=== PATIENT | male | born 1985 | race Caucasian/White ===

== ENCOUNTER 2017-09-21 15:34 | Emergency (ER) | payer SELFPAY ==
[~2017-09-21] VITALS: Ht 182.9 cm; Wt 85.0 kg
[2017-09-21 15:48] VITALS: BP 120/67; PULSE 102; RESP 19; TEMP 98.2; O2SAT 95
--- NOTE | 2017-09-21 16:03 | PD ---
HPI Chief Complaint: Alcohol/Drug Intoxication Time Seen by Provider: 15:49 Travel History International Travel<30 days: No Contact w/Intl Traveler<30days: No Traveled to known affect area: No History of Present Illness HPI The patient is a 32-year-old male who presents to the emergency department via EMS for drug intoxication. The patient apparently was found vomiting, bilaterally, at a convenience store earlier today and EMS was called. The patient states he smoked K2 and approximately 2:30 PM. The patient does have a history of prior case to use, states he had one previous episode of similar symptoms with nausea and vomiting. The patient states his nausea is currently resolved. He denies any headache, chest pain, shortness breath, abdominal pain, but does complain of some generalized fatigue. He denies ingestion of alcohol or any other illicit drugs except for K2. The drums are moderate, exacerbated after drug use, and mostly self alleviating. PFSH Past Medical History Narrative Medical Illicit drug use Past Surgical History Narrative Surgical Noncontributory Social History Alcohol Use: No Tobacco Use: Yes Substance Use: Yes Allergies-Medications (Allergen,Severity, Reaction): Coded Allergies: No Known Allergies (Unverified , 09/21/17) Review of Systems Except as stated in HPI: all other systems reviewed are Neg General / Constitutional: No: Fever Cardiovascular: No: Chest Pain or Discomfort Respiratory: No: Shortness of Breath Gastrointestinal: Positive: Nausea, Vomiting, No: Abdominal Pain Musculoskeletal: Positive: Weakness Psychiatric: Positive: Substance Abuse Physical Exam Narrative GENERAL: Awake, alert, nontoxic-appearing 32-year-old male who appears his stated age and is in no acute respiratory distress. SKIN: Focused skin assessment warm/dry. HEAD: Atraumatic. Normocephalic. EYES: Pupils equal and round. No scleral icterus. No injection or drainage. ENT: No nasal bleeding or discharge. Mucous membranes pink and moist. NECK: Trachea midline. No JVD. CARDIOVASCULAR: Regular, tachycardic with a heart rate of 100. Respiratory: Bilateral breath sounds without wheezes, Rales, rhonchi. GASTROINTESTINAL: Abdomen soft, non-tender, nondistended. No rebound tenderness. MUSCULOSKELETAL: No obvious deformities. No clubbing. No cyanosis. No edema. NEUROLOGICAL: Awake and alert. No obvious cranial nerve deficits. Motor grossly within normal limits. Normal speech. Nonfocal. Oriented 4. Follows commands without difficulty. PSYCHIATRIC: Appropriate mood and affect; insight and judgment normal. Data Data Last Documented VS Vital Signs Date Time Temp Pulse Resp B/P (MAP) Pulse Ox O2 Delivery O2 Flow Rate FiO2 09/21/17 15:48 98.2 102 19 120/67 (84) 95 Orders Orders Ed Discharge Order (09/21/17 16:14) MDM Medical Decision Making Medical Screen Exam Complete: Yes Emergency Medical Condition: Yes Medical Record Reviewed: Yes Differential Diagnosis Differential diagnosis includes drug ingestion, K2 side effect, polysubstance abuse, gastritis. Narrative Course Upon arrival the patient states his symptoms have resolved and he declines blood work, IV, and medications. The patient is alert, oriented, and able to follow commands. The patient was observed in the emergency department, he was administered by mouth challenge with Gatorade. The patient will be discharged on his own, since, is advised to refrain from using K2. Diagnosis Primary Impression: Recreational drug use Patient Instructions: General Instructions Additional Instructions: Stop using K2. Plenty fluids to stay hydrated. Follow-up with your primary physician. Return if symptoms worsen or progress. Disposition: 01 DISCHARGE HOME Condition: Stable Carlos Rodrigez MD Sep 21, 2017 16:03
== END 2017-09-21 16:41 | disposition home or self-care (01) ==
LOC: NEPE 15:34
DX: F19.129 Other psychoactive substance abuse with intoxication, unspecified (principal); R11.10 Vomiting, unspecified; R53.1 Weakness; Z72.0 Tobacco use
CPT/HCPCS: 99283